=== PATIENT | male | born 1995 ===

== ENCOUNTER → 2019-05-29 12:45 | Day surgery (SDC) | payer BC ==
[~2019-05-29 12:45] MED LIST: Acetaminophen TAB* 325 MG PO PRN; Buffered Lidocaine 1% SYRIN* 1 ML/SYRINGE INTRADERM ONE; Bupivacaine 0.25% EPI 200,000* 30 ML SDV ONE; Dexamethasone IV* 4 MG/ML 1 ML (4 MG) ONE; DiMENhydriNATE IV* 50 MG/ML VIAL IV PUSH PRN; DiMENhydriNATE IV* 50 MG/ML VIAL ONE; Famotidine IV* 10 MG/ML 2 ML (20 mg) IV ONE; Famotidine IV* 10 MG/ML 2 ML (20 mg) ONE; Glycopyrrolate IV* 0.2 MG/ML 1 ML VIAL ONE; HYDROmorphone INJ1* 1 MG/ML SYRINGE IV PRN; Ketorolac INJ* 30 MG/ML 1 ML VIAL ONE; Lactated Ringers 1000 ML Bag* 1,000 ML IV SCH; Lidocaine 2% PF * 5 ML VIAL ONE; Midazolam* 1 MG/ML 5 ML VIAL (5 MG) ONE; Naloxone* 0.4 MG/ML 1 ML VIAL IV PRN; Neostigmine Methylsulfate* 1 MG/ML 10 ML VIAL (1 mg/ml) ONE; Ondansetron INJ* 2 MG/ML VIAL ONE; Propofol* 10 MG/ML 20 ML BTL ONE; Rocuronium* 10 MG/ML VIAL ONE; Succinylcholine* 20 MG/ML 10 ML VIAL ONE; ceFAZolin 2 GM in NS PREMIX(*) 2 GM/100 ML BAG IVPB ONE; fentaNYL* 50 MCG/ML 2 ML VIAL (100 MCG VIAL) ONE; oxyCODONE TAB* 5 MG TAB PO PRN
--- NOTE | 2019-05-29 14:51 | BRIEFOPN ---
Brief Operative Note - Surgery Procedures: Pre-OP Diagnoses: Left inguinal hernia Post-op Diagnosis: same Procedure: Laparoscopic Left inguinal hernia repair with mesh Surgeon: Dexter Asst: YULIANA Mckoy Anethesia: MARIIA EBL: minimal IVF: 1000cc LR Specimen: none Drains: none
[2019-05-29 15:21] LABS: HIV 4th Generation Negative (Negative)
[2019-05-29 16:55] VITALS: BP 121/69
--- NOTE | 2019-05-29 21:30 | OP ---
CC: [facility] * DATE OF OPERATION: 05/29/19 - [facility] DATE OF : [birth year] SURGEON: Martin Renteria MD. DIRECTIONAL DRILLER: YULIANA Hdez. ANESTHESIOLOGIST: Dr. Kaur. ANESTHESIA: General anesthesia. PRE-OP DIAGNOSIS: Left inguinal hernia. POST-OP DIAGNOSIS: Left inguinal hernia. OPERATIVE PROCEDURE: Laparoscopic left inguinal hernia repair with mesh. ESTIMATED BLOOD LOSS: Minimal. FLUIDS: Minimal crystalloid fluid given. SPECIMEN: None. DESCRIPTION OF PROCEDURE: The patient was identified in the preoperative area. Consent was signed. The area was clipped in the lower abdomen. He was then brought to the operating room, placed on the operating table in the supine position. Preoperative antibiotics were given. Sequential devices were placed on bilateral lower extremities and general anesthesia was induced. The patient' s abdomen was prepped and draped in standard surgical fashion. A time-out was performed. An infraumbilical incision was made. This was deepened down to the anterior fascia on the right, which was incised and the rectus pillar retracted laterally and the preperitoneal plane opened up and blunt dissection was carried out with the surgeon's finger. Next, a 12-mm blunt trocar was inserted through it and the preperitoneal plane was allowed to insufflate to a pressure of 12 mmHg. The patient tolerated the insufflation well and blunt camera dissection down to the pubic symphysis was then carried out. This gave us an opportunity to place two 5- mm trocars in the lower midline. Additional blunt and sharp dissection was carried out to open up the preperitoneal plane. We cleared off the Colt fascia both on the left and right. We identified the epigastric vessels on the left side. There was no evidence of a direct hernia. The Bogros space was opened laterally and a large indirect hernia was identified. With traction and blunt dissection, we were able to free the hernia sac entirely from the spermatic structures. We checked the spermatic structures and skeletonized these and they were all intact. Next, a medium-sized Bard 3DMax mesh was then placed into the preperitoneal plane and unfurled in the appropriate fashion and tacked with Coopers and also laterally on the left covering the full left myopectineal orifice. This preperitoneal plane was then allowed to collapse. Trocars were removed under direct vision and then we closed the anterior fascia of the umbilical port site with a 0-Vicryl suture using a [id number] stitch and then closed all three skin incisions with 4-0 Monocryl subcuticular sutures. Steri-Strips and sterile dressing were applied. The patient tolerated the procedure well and was awoken up in the OR and transferred to the PACU in stable condition. [id number]/[facility] #: [id number] LENA
== END | disposition home or self-care (01) ==
LOC: OR 12:45
PROVIDERS: ATTEND Surgery
DX: K40.90 Unilateral inguinal hernia, without obstruction or gangrene, not specified as recurrent (principal); F41.9 Anxiety disorder, unspecified
CPT/HCPCS: 36415; 87389; C1781; J0330; J0690; J1100; J1240; J1885; J2250; J2405; J2704; J2710; J3010

== ENCOUNTER 2019-06-04 01:56 | Emergency (ER) | payer BC ==
--- OUTSIDE RECORDS SUMMARY | 2019-06-04 02:09 | XMS REPORT | Continuity of Care Document ---
:1995 External Reference #:[id number] Author Name Sintia Mayorga Care Team Providers Name Role Phone Michele Ashton M.D. Care Team Information Manager Multimedia Unavailable Nathalia Odom DO Primary Care Physician Unavailable Payers Date Identification Numbers Payment Provider Subscriber Effective: 2015 Policy Number: [id number] [employer] [place] [employer] PayID: [id number] [address] [address] [place] [address] Family History Date Family Member(s) Observation Comments General Cancer General Hypertension General Heart Disease Social History Type Date Description Comments Sex Unknown Marital Status Single Lives With Roommate Occupation Student ETOH Use Occasionally consumes alcohol Tobacco Use Start: Unknown Patient has never smoked Recreational Drug Use Sporadically uses Marijuana Smoking Status Reviewed: 05/06/19 Patient has never smoked Exercise Type/Frequency Does not exercise Allergies, Adverse Reactions, Alerts Active Allergies Reaction Severity Comments Date Isotretinoin 05/03/2019 Medications Description No Active Medications Vital Signs Date Vital Result Comment 05/06/2019 10:08am Height 70 inches 5'10" Weight 177.00 lb Heart Rate 68 /min BP Systolic 96 mmHg BP Diastolic 68 mmHg Respiratory Rate 16 /min Body Temperature 97.8 F BMI (Body Mass Index) 25.4 kg/m2 Plan of Treatment Future Appointment(s):06/06/2019 1:00 pm - Amada Kesy NP at [facility]05/29/2019 2:30 pm - YULIANA Seo at [facility]05/29/2019 2:30 pm - Martin Renteria MD, FACS at [facility]05/06/2019 - Martin Renteria MD, [id number] Unilateral inguinal hernia, without obstruction or gangrene,Follow up:Operating roomInstructions:Present to an emergency room if you feel that the hernia won't reduce as we discussed in the office
--- NOTE | 2019-06-04 02:28 | ED ---
GI/ HPI - HPI Summary HPI Summary: Had an inguinal surgery repair on 05/29/19. At 1600 on 06/03/19 the pt states that he was walking and felt a sharp pain on his L groin rated a 4/10 in severity and could feel numbness and tingling on his L leg. Pt stated that he saw his PCP at [facility] and they stated that he had no cardiovascular issues. He was recommended to arrive to [facility] if the symptoms continued. He had a pulling sensation in his L big toe at 2330 which prompted him to arrive to the ED. He states that does not have any fever, chills, SOB, CP, abdominal pain , or N/V/D. - History of Current Complaint Chief Complaint: EDGeneral Time Seen by Provider: 06/04/19 02:10 Stated Complaint: POST SURGICAL COMPLICATION PER PT Hx Obtained From: Patient Onset/Duration: Started Hours Ago, Still Present Timing: Constant Severity: Mild Current Severity: Moderate Pain Intensity: 4 Location of Pain: Groin Pain Characteristics: Sharp Associated Signs and Symptoms: Positive: Negative - abdominal pain, SOB, Other: - stated numbness and tingling down his L leg. Negative: Nausea, Vomiting, Diarrhea, Diaphoresis, Fever, Chills, Abdominal Pain, Chest Pain - Allergy/Home Medications Allergies/Adverse Reactions: Allergies Allergy/AdvReac Type Severity Reaction Status Date / Time isotretinoin Allergy Severe Tinnitus Verified 06/04/19 02:06 PMH/Surg Hx/FS Hx/Imm Hx Previously Healthy: Yes Endocrine/Hematology History: Denies: Hx Diabetes Cardiovascular History: Denies: Hx Hypertension Sensory History: Denies: Hx Contacts or Glasses, Hx Hearing Aid Opthamlomology History: Denies: Hx Contacts or Glasses Psychiatric History: Reports: Hx Anxiety, Hx Depression - Cancer History Hx Chemotherapy: No Infectious Disease History: No Infectious Disease History: Denies: Traveled Outside the [place] in Last 30 Days - Family History Known Family History: Positive: Cardiac Disease - maternal grandfather, Hypertension - maternal grandfather, Other - dementia, CA in maternal and paternal sides - Social History Occupation: Unemployed Lives: Dormitory/Roommates Alcohol Use: Weekly - 3-4 times per week Hx Substance Use: Yes Substance Use Type: Reports: Marijuana Substance Use Comment - Amount & Last Used: rarely Hx Tobacco Use: No Smoking Status (MU): Never Smoked Tobacco Review of Systems Negative: Fever, Chills Negative: Chest Pain Negative: Shortness Of Breath Negative: Abdominal Pain, Vomiting, Diarrhea, Nausea Positive: other - L groin pain Positive: Numbness - L Leg All Other Systems Reviewed And Are Negative: Yes Physical Exam - Summary Physical Exam Summary: VITAL SIGNS: Reviewed. GENERAL: Patient is a well-developed and nourished male who is lying comfortable in the stretcher. Patient is not in any acute respiratory distress. HEAD AND FACE: No signs of trauma. No ecchymosis, hematomas or skull depressions. No sinus tenderness. EYES: PERRLA, EOMI x 2, No injected conjunctiva, no nystagmus. EARS: Hearing grossly intact. Ear canals and tympanic membranes are within normal limits. MOUTH: Oropharynx within normal limits. NECK: Supple, trachea is midline, no adenopathy, no JVD, no carotid bruit, no c- spine tenderness, neck with full ROM CHEST: Symmetric, no tenderness at palpation LUNGS: Clear to auscultation bilaterally. No wheezing or crackles. CVS: Regular rate and rhythm, S1 and S2 present, no murmurs or gallops appreciated. ABDOMEN: Soft, non-tender. No signs of distention. No rebound no guarding, and no masses palpated. Bowel sounds are normal. EXTREMITIES: FROM in all major joints, no edema, no cyanosis or clubbing. NEURO: Alert and oriented x 3. No acute neurological deficits. Speech is normal and follows commands. SKIN: Dry and warm, sub umbilical incision covered with steri-stripes and no signs of infection. Triage Information Reviewed: Yes Vital Signs On Initial Exam: Initial Vitals Temp Pulse Resp BP Pulse Ox 99.3 F 78 16 139/75 97 06/04/19 01:59 06/04/19 01:59 06/04/19 01:59 06/04/19 01:59 06/04/19 01:59 Vital Signs Reviewed: Yes Diagnostics - Vital Signs Vital Signs Temp Pulse Resp BP Pulse Ox 06/04/19 01:59 99.3 F 78 16 139/75 97 - Laboratory Lab Statement: Any lab studies that have been ordered have been reviewed, and results considered in the medical decision making process. GIGU Course/Dx - Course Course Of Treatment: This pt is a 23 y/o M presenting to [facility] with a CC of L leg numbness and L groin pain starting around 1600 this morning. His PE found that he had a sub umbilical incision covered with steri-stripes and no signs of infection. He will be discharged with a Dx of numbness and instructions to follow up with Dr. aviles's office tomorrow to schedule a follow up appointment. - Diagnoses Provider Diagnoses: Numbness Discharge - Sign-Out/Discharge Documenting (check all that apply): Patient Departure - discharge, Post- Discharge Follow Up - discharge Patient Received Moderate/Deep Sedation with Procedure: No - Discharge Plan Condition: Stable Disposition: HOME Patient Education Materials: Paresthesia (ED) Referrals: Martin Renteria MD [Medical Doctor] - 1 Day Additional Instructions: Please call Dr. Renteria's office tomorrow to discuss your recent surgery. Return to the emergency department for any new or worsening symptoms. - Attestation Statements Document Initiated by Scribe: Yes Documenting Scribe: Elver Ward Provider For Whom Scribe is Documenting (Include Credential): Lena Goel MD Scribe Attestation: Elver Braswell, scribed for Lena Goel MD on 06/04/19 at 0236. Status of Scribe Document: Ready
[2019-06-04 02:49] VITALS: BP 119/68
== END 2019-06-04 02:48 | disposition home or self-care (01) ==
LOC: ED 01:56
DX: R20.0 Anesthesia of skin (principal); R10.32 Left lower quadrant pain; Z88.8 Allergy status to other drugs, medicaments and biological substances; Z98.890 Other specified postprocedural states
CPT/HCPCS: 99282